=== PATIENT | male | born 1950 | race Caucasian/White ===

== ENCOUNTER 2017-10-14 15:10 | Emergency (ER) | payer OTHER ==
[2017-10-14 15:16] VITALS: RESP 18
[2017-10-14] MEDS ORDERED: ASPIRIN 81 MG PO STA (15:21)
[2017-10-14 15:47] LABS: Basophils % (A) 0 %; Eosinophils # (A) 0.2 k/uL (0-0.7); Eosinophils % (A) 3 %; HCT 44.4 % (39.0-53.0); HGB 14.6 gm/dL (13.0-17.5); Lymphocytes # (A) 2.6 k/uL (1.0-4.8); Lymphocytes % (A) 32 %; MCH 30.7 pg (25.0-35.0); MCHC 32.9 g/dL (31.0-37.0); MCV 93.3 fL (80.0-100.0); Mean Platelet Volume 10.1; Monocytes # (A) 0.5 k/uL (0-1.0); Monocytes % (A) 6 %; Neutrophils # (A) 4.5 k/uL (1.3-7.7); Neutrophils % (A) 57 %; Platelet Count 152 k/uL (150-450); RBC 4.76 m/uL (4.30-5.90); RDW 13.2 % (11.5-15.5)
[2017-10-14 15:55] LABS: ALT 28 U/L (21-72); AST 22 U/L (17-59); Albumin 4.2 g/dL (3.5-5.0); Alkaline Phosphatase 49 U/L (38-126); Anion Gap 11 mmol/L; Blood Urea Nitrogen 21 mg/dL (9-20); Calcium 8.8 mg/dL (8.4-10.2); Carbon Dioxide 22 mmol/L (22-30); Chloride 107 mmol/L (98-107); Glucose 113 mg/dL (74-99); Lipase 206 U/L (23-300); Magnesium 1.8 mg/dL (1.6-2.3); Sodium 140 mmol/L (137-145); Total Bilirubin 0.3 mg/dL (0.2-1.3); Total Protein 6.6 g/dL (6.3-8.2)
--- NOTE | 2017-10-14 16:01 | XR ---
EXAMINATION TYPE: XR chest 2V DATE OF EXAM: 10/14/2017 COMPARISON: 12/19/2012 HISTORY: Chest pain TECHNIQUE: Frontal and lateral views of the chest are obtained. FINDINGS: There is no focal air space opacity, pleural effusion, or pneumothorax seen. The cardiac silhouette size is within normal limits. The osseous structures are intact. Moderate multilevel deg enerative changes of the thoracic spine are noted. IMPRESSION: No acute cardiopulmonary process.
--- NOTE | 2017-10-14 16:04 | ED ---
Chest Pain HPI - General Chief Complaint: Chest Pain Stated Complaint: Heart Check sent by PCP Time Seen by Provider: 10/14/17 15:19 Source: patient Mode of arrival: ambulatory Limitations: no limitations - History of Present Illness Initial Comments: Patient complains of chest pain. Pain is in the left side of the chest. It does not radiate anywhere. He has no shortness of breath, nausea or vomiting or diaphoresis. He has no pain or swelling in the legs. He denies sick contacts. He denies recent travel. He denies long plane or cards. He has taken an aspirin for the chest pain prior to arrival. He has no neck pain or stiffness. He has no headache. - Related Data Home Medications Medication Instructions Recorded Confirmed Aspirin 81 mg PO DAILY 07/09/15 07/09/15 Allergies Allergy/AdvReac Type Severity Reaction Status Date / Time No Known Allergies Allergy Verified 10/14/17 15:16 Review of Systems ROS Statement: Those systems with pertinent positive or pertinent negative responses have been documented in the HPI. ROS Other: All systems not noted in ROS Statement are negative. EKG Findings - EKG Comments: EKG Findings:: Twelve-lead EKG shows ventricular rate 60 bpm, normal WI interval and QRS complexes, no ST elevation or depression, interpreted by me as normal sinus rhythm. Past Medical History Additional Past Medical History / Comment(s): HX POLYPS History of Any Multi-Drug Resistant Organisms: None Reported Past Surgical History: No Surgical Hx Reported Additional Past Surgical History / Comment(s): HX NO MAJOR SURGERIES Past Anesthesia/Blood Transfusion Reactions: No Reported Reaction Past Psychological History: No Psychological Hx Reported Smoking Status: Former smoker Past Alcohol Use History: None Reported Past Drug Use History: None Reported - Past Family History Father Family Medical History: Deep Vein Thrombosis (DVT) General Exam Limitations: no limitations General appearance: alert, in no apparent distress Head exam: Present: atraumatic, normocephalic, normal inspection Eye exam: Present: normal appearance, PERRL, EOMI. Absent: scleral icterus, conjunctival injection, periorbital swelling ENT exam: Present: normal exam, mucous membranes moist Neck exam: Present: normal inspection. Absent: tenderness, meningismus, lymphadenopathy Respiratory exam: Present: normal lung sounds bilaterally. Absent: respiratory distress, wheezes, rales, rhonchi, stridor Cardiovascular Exam: Present: regular rate, normal rhythm, normal heart sounds. Absent: systolic murmur, diastolic murmur, rubs, gallop, clicks GI/Abdominal exam: Present: soft, normal bowel sounds. Absent: distended, tenderness, guarding, rebound, rigid Extremities exam: Present: normal inspection, full ROM, normal capillary refill. Absent: tenderness, pedal edema, joint swelling, calf tenderness Back exam: Present: normal inspection Neurological exam: Present: alert, oriented X3, CN II-XII intact Psychiatric exam: Present: normal affect, normal mood Skin exam: Present: warm, dry, intact, normal color. Absent: rash Course Vital Signs 10/14/17 15:14 Temperature 98.7 F Pulse Rate 70 Respiratory 18 Rate Blood Pressure 168/77 O2 Sat by Pulse 97 Oximetry Chest Pain MDM - Core Measures AMI Core Measures Followed: Yes - MDM Patient complains of chest pain. I will consult cardiology. He will be admitted to the hospital. Disposition Clinical Impression: Chest pain Disposition: ADMITTED IP TO THIS HOSP Condition: Fair Is patient prescribed a controlled substance at d/c from ED?: No Referrals: Jose Mckeon DO [Primary Care Provider] - 1-2 days
[2017-10-14 16:14] LABS: INR 1.1 (<1.2); Partial Thromboplastin Time 23.1 sec (22.0-30.0); Prothrombin Time 10.3 sec (9.0-12.0)
--- NOTE | 2017-10-14 16:27 | ED ---
Medical Decision Making - Lab Data Result diagrams: 10/14/17 15:38 10/14/17 15:38 Lab Results 10/14/17 10/14/17 10/14/17 Range/Units 15:38 15:38 15:38 WBC 8.0 (3.8-10.6) k/uL RBC 4.76 (4.30-5.90) m/uL Hgb 14.6 (13.0-17.5) gm/dL Hct 44.4 (39.0-53.0) % MCV 93.3 (80.0-100.0) fL MCH 30.7 (25.0-35.0) pg MCHC 32.9 (31.0-37.0) g/dL RDW 13.2 (11.5-15.5) % Plt Count 152 (150-450) k/uL Neutrophils % 57 % Lymphocytes % 32 % Monocytes % 6 % Eosinophils % 3 % Basophils % 0 % Neutrophils # 4.5 (1.3-7.7) k/uL Lymphocytes # 2.6 (1.0-4.8) k/uL Monocytes # 0.5 (0-1.0) k/uL Eosinophils # 0.2 (0-0.7) k/uL Basophils # 0.0 (0-0.2) k/uL PT (9.0-12.0) sec INR (<1.2) APTT (22.0-30.0) sec Sodium 140 (137-145) mmol/L Potassium 4.0 (3.5-5.1) mmol/L Chloride 107 (98-107) mmol/L Carbon Dioxide 22 (22-30) mmol/L Anion Gap 11 mmol/L BUN 21 H (9-20) mg/dL Creatinine 0.70 (0.66-1.25) mg/dL Est GFR (CKD-EPI)AfAm >90 (>60 ml/min/1.73 sqM) Est GFR (CKD-EPI)NonAf >90 (>60 ml/min/1.73 sqM) Glucose 113 H (74-99) mg/dL Calcium 8.8 (8.4-10.2) mg/dL Magnesium 1.8 (1.6-2.3) mg/dL Total Bilirubin 0.3 (0.2-1.3) mg/dL AST 22 (17-59) U/L ALT 28 (21-72) U/L Alkaline Phosphatase 49 (38-126) U/L Troponin I (0.000-0.034) ng/mL NT-Pro-B Natriuret Pep 150 pg/mL Total Protein 6.6 (6.3-8.2) g/dL Albumin 4.2 (3.5-5.0) g/dL Lipase 206 (23-300) U/L 10/14/17 10/14/17 Range/Units 15:38 15:38 WBC (3.8-10.6) k/uL RBC (4.30-5.90) m/uL Hgb (13.0-17.5) gm/dL Hct (39.0-53.0) % MCV (80.0-100.0) fL MCH (25.0-35.0) pg MCHC (31.0-37.0) g/dL RDW (11.5-15.5) % Plt Count (150-450) k/uL Neutrophils % % Lymphocytes % % Monocytes % % Eosinophils % % Basophils % % Neutrophils # (1.3-7.7) k/uL Lymphocytes # (1.0-4.8) k/uL Monocytes # (0-1.0) k/uL Eosinophils # (0-0.7) k/uL Basophils # (0-0.2) k/uL PT 10.3 (9.0-12.0) sec INR 1.1 (<1.2) APTT 23.1 (22.0-30.0) sec Sodium (137-145) mmol/L Potassium (3.5-5.1) mmol/L Chloride (98-107) mmol/L Carbon Dioxide (22-30) mmol/L Anion Gap mmol/L BUN (9-20) mg/dL Creatinine (0.66-1.25) mg/dL Est GFR (CKD-EPI)AfAm (>60 ml/min/1.73 sqM) Est GFR (CKD-EPI)NonAf (>60 ml/min/1.73 sqM) Glucose (74-99) mg/dL Calcium (8.4-10.2) mg/dL Magnesium (1.6-2.3) mg/dL Total Bilirubin (0.2-1.3) mg/dL AST (17-59) U/L ALT (21-72) U/L Alkaline Phosphatase (38-126) U/L Troponin I <0.012 (0.000-0.034) ng/mL NT-Pro-B Natriuret Pep pg/mL Total Protein (6.3-8.2) g/dL Albumin (3.5-5.0) g/dL Lipase (23-300) U/L Disposition Clinical Impression: Chest pain Disposition: Left Against Medical Advice Condition: Fair Instructions: Chest Pain (ED) Is patient prescribed a controlled substance at d/c from ED?: No Referrals: Jose Mckeon DO [Primary Care Provider] - 1-2 days Felicia Leahy MD [STAFF PHYSICIAN] - 1-2 days
[2017-10-14 16:44] VITALS: BP 158/85; PULSE 61; TEMP 98.6
[2017-10-15] MEDS ORDERED: ASPIRIN 81 MG PO SCH (09:00)
== END 2017-10-14 16:42 | disposition home or self-care (01) ==
LOC: EC 15:10
DX: R07.9 Chest pain, unspecified (principal); Z79.82 Long term (current) use of aspirin; Z87.891 Personal history of nicotine dependence
CPT/HCPCS: 36415; 71046; 80053; 83690; 83735; 83880; 84484; 85025; 85610; 85730; 93005; 99285

== ENCOUNTER 2018-02-02 15:18 | Emergency (ER) | payer OTHER ==
[2018-02-02] MEDS ORDERED: IBUPROFEN 600 MG TAB PO STA (15:56)
--- NOTE | 2018-02-02 16:50 | ED ---
Eye Problem HPI - General Chief complaint: Eye Problems Stated complaint: eye injury Time Seen by Provider: 02/02/18 15:41 Source: patient Mode of arrival: ambulatory Limitations: no limitations - History of Present Illness Initial comments: 67male who denies PMH with chief complaint of left eye pain s/p injury. Patient states that around 1:15 this afternoon he was trying to push the lawn more up a ramp, when he came back the Yamil handle hit him directly in the left eye. Patient states that it felt as though hit just the eyeball, with minimal contact of the orbits. Patient denies any flashing lights, new onset of floaters or curtain/veil or darkening of peripheral vision. Patient denies any loss of vision or visual changes. Patient denies any pain with EOM, nausea , vomiting, photophobia, foreign body sensation. When the swelling increased about 2 hours after the injury patient presents emergency department for evaluation. Patient denies any allergies or past medical history. Patient denies any recent fever, chills, shortness of breath, chest pain, back pain, abdominal pain, nausea or vomiting, numbness or tingling, dysuria or hematuria, constipation or diarrhea, headaches or visual changes, or any other complaints. - Related Data Home Medications Medication Instructions Recorded Confirmed Cholecalciferol [Vitamin D3] 1,000 unit PO DAILY 02/02/18 02/02/18 Mellisa 500 mg PO DAILY 02/02/18 02/02/18 [place]-3 Fatty Acids/Fish Oil [Fish 1 cap PO TID-W/MEALS 02/02/18 02/02/18 Oil 1,000 mg Softgel] Turmeric Root Extract [Turmeric] 500 mg PO DAILY 02/02/18 02/02/18 Previous Rx's Medication Instructions Recorded Acetaminophen-Codeine 300-30mg 1 tab PO Q6H PRN 3 Days #12 tablet 02/02/18 [Tylenol w/codeine #3] Amoxicillin/Potassium Clav 1 tab PO Q12HR 5 Days #10 tab 02/02/18 [Augmentin 875-125 Tablet] Allergies Allergy/AdvReac Type Severity Reaction Status Date / Time No Known Allergies Allergy Verified 02/02/18 16:09 Review of Systems ROS Statement: Those systems with pertinent positive or pertinent negative responses have been documented in the HPI. ROS Other: All systems not noted in ROS Statement are negative. Constitutional: Denies: fever, chills Eyes: Reports: eye pain. Denies: eye discharge, vision change ENT: Denies: ear pain, throat pain Respiratory: Denies: cough, dyspnea, wheezes, hemoptysis, stridor Cardiovascular: Denies: chest pain, palpitations Endocrine: Denies: fatigue Gastrointestinal: Denies: abdominal pain, nausea, vomiting Genitourinary: Denies: as per HPI, urgency, dysuria, frequency, hematuria, discharge Musculoskeletal: Denies: back pain Skin: Denies: rash, lesions Neurological: Denies: as per HPI, headache, weakness, numbness, paresthesias, confusion Past Medical History Additional Past Medical History / Comment(s): HX POLYPS History of Any Multi-Drug Resistant Organisms: None Reported Past Surgical History: No Surgical Hx Reported Additional Past Surgical History / Comment(s): HX NO MAJOR SURGERIES Past Anesthesia/Blood Transfusion Reactions: No Reported Reaction Past Psychological History: No Psychological Hx Reported Smoking Status: Former smoker Past Alcohol Use History: Occasional Past Drug Use History: None Reported - Past Family History Father Family Medical History: Deep Vein Thrombosis (DVT) General Exam - General Exam Comments Initial Comments: General: The patient is awake and alert, in no distress, and does not appear acutely ill. Eye: Examination of the external eye bilaterally reveals left eye swelling of the upper and lower lids with ecchymosis. No exophalamos or enopthalmos. +3 pupils are equal, round and reactive to light, extra-ocular movements are intact. Pt did admit to mild pain to EOM with upward gaze- there did not appear to be obvious signs of entrapment with upward gaze. No APD or conjugate gaze. No nystagmus. No hypema. There is moderate conjunctival injection of the left eye sparing the limbus, right eye conjunctiva within normal limits. No subconjunctival hemorrhage-including 360 hemorrhage. No signs of icterus. VF intact to confrontation b/l. VA 20/30 OD, OS and OU. Slit-lamp exam with fluorescein staining revealed no areas of uptake, negative Nguyen sign b/l. Retinal exam is limited due to no dilation-no obvious abnormalities. There are no palpable defect or step off to palpation of the orbital bones. No facial sensation abnormalities to light touch. IOP 10 OD, IOP 11 OS. Ears, nose, mouth and throat: There are moist mucous membranes and no oral lesions. Neck: The neck is supple, there is no tenderness or JVD. Cardiovascular: There is a regular rate and rhythm. No murmur, rub or gallop is appreciated. Respiratory: Lungs are clear to auscultation, respirations are non-labored, breath sounds are equal. No wheezes, stridor, rales, or rhonchi. Musculoskeletal: Normal ROM, no tenderness. Strength 5/5. Sensation intact. Radial pulses equal bilaterally 2+. Neurological: A&O x 3. CN II-XII intact, There are no obvious motor or sensory deficits. Coordination appears grossly intact. Speech is normal. Skin: Skin is warm and dry and no rashes or lesions are noted. Psychiatric: Cooperative, appropriate mood & affect, normal judgment. Repeat PE: After 3 hours VA repeated 20/30 OD, OS, OU. Pupils +3 mm PERRL. No APD. Limitations: no limitations Course Vital Signs 02/02/18 02/02/18 15:32 19:20 Temperature 98.8 F 98.2 F Pulse Rate 55 L 49 L Respiratory 18 17 Rate Blood Pressure 150/74 162/70 O2 Sat by Pulse 99 98 Oximetry Medical Decision Making - Medical Decision Making PE as noted above. VA equally b/l. No signs or symptoms of globe rupture, retinal detachment or retrobulbar hematoma. There are no signs or symptoms of corneal abrasion upon physical exam with slit lamp. Pt did admit to pain with upward gaze however pt was able to complete movement no signs of entrapment. Due to pain with EOM CT of orbits obtained revealing orbit floor fracture with no signs of muscle entrapment. Repeat VA performed revealing no changes from original exam. Case discussed with Dr. Colvin who agrees that pt is stable for d/ c with f/u with ophthalmology within 24 hours. Pt was given specific return parameters regarding signs and symptoms of retinal detachment, increasing pain and any visual changes/loss. Pt verbalizes understanding. Pt HR bradycardia concerning for vagal response, however pt denies any symptoms including light headed, nausea vomiting concerning for a severe response-BP stable. Case discussed in detail with Dr. Colvin who reviewed imaging and deemed patient is stable for discharge with close ophthalmology follow-up. Patient is to have a need to make the appointment with ophthalmology themselves. Patient is given prescription for Tylenol 3 for pain management. Opioids are talking form was filled out, the patient was educated on use of opioids. Pt discharged in stable condition. Disposition Clinical Impression: Blunt injury, left eye, Fracture of left orbital floor Disposition: HOME SELF-CARE Condition: Good Instructions: Eye Pain (ED) Additional Instructions: Please use medication as discussed. Please follow-up with ophthalmology in the next 24-48 hours. Please return to emergency room if the symptoms increase or worsen or for any other concerns, as discussed. Prescriptions: Acetaminophen-Codeine 300-30mg [Tylenol w/codeine #3] 1 tab PO Q6H PRN 3 Days # 12 tablet PRN Reason: Pain Amoxicillin/Potassium Clav [Augmentin 875-125 Tablet] 1 tab PO Q12HR 5 Days #10 tab Is patient prescribed a controlled substance at d/c from ED?: No Referrals: [facility],Clinic [Primary Care Provider] - 1-2 days Galdino Adkins MD [STAFF PHYSICIAN] - 1-2 days Time of Disposition: 16:52
--- NOTE | 2018-02-02 18:55 | CT ---
EXAMINATION TYPE: CT orbits wo con DATE OF EXAM: 02/02/2018 COMPARISON: None HISTORY: Hit in left eye with dispensing and measuring optician handle. CT DLP: 378 mGycm Automated exposure control for dose reduction was used. FINDINGS: There is marked left-sided preorbital soft tissue swelling and subcutaneous emphysema. There is a left orbital floor 6 mm caudally-displaced fracture, with the fracture line being medial t o the inferior rectus. The inferior rectus does not appear to be entrapped. Tiny gas bubbles are note d within the left orbit as a result of this left ORBIT communication with the upper left maxillary si nus. Paranasal sinuses are otherwise unremarkable, as are the middle ear cavities and mastoid sinus air ce lls. Remainder the visualized facial skeleton is intact. No other fractures. No other soft tissue findings. IMPRESSION: LEFT ORBITAL FLOOR FRACTURE.
[2018-02-02 19:21] VITALS: BP 162/70; PULSE 49; RESP 17; TEMP 98.2
== END 2018-02-02 19:39 | disposition home or self-care (01) ==
LOC: EC 15:18
DX: S02.32XA Fracture of orbital floor, left side, initial encounter for closed fracture (principal); S05.92XA Unspecified injury of left eye and orbit, initial encounter; R00.1 Bradycardia, unspecified; Z86.010 Personal history of colon polyps; Z87.891 Personal history of nicotine dependence; Z79.899 Other long term (current) drug therapy; W27.1XXA Contact with garden tool, initial encounter; Y93.89 Activity, other specified
CPT/HCPCS: 70480; 99283

== ENCOUNTER → 2019-01-04 | Outpatient (CLI) | payer OTHER ==
--- NOTE | 2019-01-06 01:08 | MR ---
EXAMINATION TYPE: MR femur/thigh RT wo/w con DATE OF EXAM: 01/04/2019 COMPARISON: None HISTORY: Mass/lump to inner right thigh CONTRAST: Standard multiplanar, multisequence MRI departmental protocol utilizing 8.5 mL intravenous Gadavist g adolinium contrast. FINDINGS: There is very slight increased signal on the T2 images involving medial adductor muscles of the upper right thigh. This area also shows slight enhancement with contrast. There is normal flow v oid seen in the femoral artery and vein. I see no focal bone destruction. Subcutaneous tissues appear normal. I see no discrete soft tissue mass. There is no pathologic fluid collection. IMPRESSION: No discrete mass seen. Mild adductor muscle enhancement could relate to myositis.
== END ==
LOC: RADMRIMAIN 07:11
PROVIDERS: ATTEND Nurse Practitioner Acute Care
DX: R22.41 Localized swelling, mass and lump, right lower limb (principal)
CPT/HCPCS: 73720; A9585

== ENCOUNTER 2019-06-01 08:59 | Day surgery (SDC) | payer OTHER ==
[2019-05-31 08:43] VITALS: BMI 31.9
[~2019-06-01 08:59] MED LIST: LACTATED RINGERS 1,000 ML IV SCH; LIDOCAINE 1% 20 ML VIAL (10MG/ML) FOR IV START INTRADERMA PRN
[2019-06-01 10:03] VITALS: RESP 16; TEMP 98.2
[2019-06-01] MEDS ORDERED: PROPOFOL 10 MG/ML 20 ML VIAL IV ONE (10:33)
[2019-06-01] MEDS ORDERED: LIDOCAINE 1% INJ 10MG/ML (20 ML MDV) ONE (10:33)
--- NOTE | 2019-06-01 10:49 | P.PCN ---
Date of Procedure: 06/01/19 Procedure(s) Performed: BRIEF HISTORY: Patient is a 69-year-old pleasant male scheduled for an elective colonoscopy as a part of a history of colon polyps. Her last coloscopy was 5 years ago. PROCEDURE PERFORMED: Colonoscopy with snare polypectomy. PREOPERATIVE DIAGNOSIS: History of colon polyps. IV sedation per Anesthesia. PROCEDURE: After informed consent was obtained, the patient, was brought into the endoscopy unit. IV sedation was administered by Anesthesia under continuous monitoring. Digital rectal examination was normal. Initially the Olympus CF-160 flexible video colonoscope was then inserted in the rectum, gradually advanced into the cecum without any difficulty. Careful examination was performed as the scope was gradually being withdrawn. Ileocecal valve and the appendiceal orifice were visualized and appeared normal. Prep was excellent. Mucosa of the cecum, ascending colon appeared normal. In the transverse colon there were 2 polyps measuring 5 mm in size both of which were removed by snare polypectomy. Rest of the transverse colon, descending colon, sigmoid colon, and rectum appeared normal. scattered left sided diverticulosis seen. Retroflexion was performed in the rectum and no lesions were seen. The patient tolerated the procedure well. IMPRESSION: 5 mm 2 transverse colon polyp status post polypectomy Scattered sigmoid diverticulosis RECOMMENDATIONS: Findings of this examination were discussed with the patient .as well as his family. He was advised to follow with the biopsy result. If the biopsy shows an adenoma he can have a repeat colonoscopy in 5 years
[2019-06-01] MEDS ORDERED: LACTATED RINGERS 1,000 ML IV ONE (10:51)
[2019-06-01 12:28] VITALS: BP 151/74; PULSE 59
== END 2019-06-01 11:26 | disposition home or self-care (01) ==
LOC: ORWHC2ENDO 08:59
PROVIDERS: ATTEND Internal Medicine Gastroenterology
DX: Z12.11 Encounter for screening for malignant neoplasm of colon (principal); D12.3 Benign neoplasm of transverse colon; K57.30 Diverticulosis of large intestine without perforation or abscess without bleeding; Z86.010 Personal history of colon polyps; Z87.891 Personal history of nicotine dependence; Z87.2 Personal history of diseases of the skin and subcutaneous tissue
CPT/HCPCS: 88305; 99214; 71046; 45385; J2001; J2704

== ENCOUNTER → 2022-08-27 | Outpatient (CLI) | payer OTHER ==
--- NOTE | 2022-08-27 12:47 | CTL ---
EXAMINATION TYPE: CT Low Dose Lung DATE OF EXAM ORDERED: 08/27/2022 HISTORY: Long-term tobacco use. Lung cancer screening CT DLP: 118.[address] CTDI: 3.4 mGy Automated exposure control for dose reduction was used. SCREENING VISIT: Baseline COMPARISON: None TECHNIQUE: Low dose computed tomography scan was performed through the chest at 1 mm thick sections a nd reconstructed images in multiple planes at 1 mm and [address] DIAGNOSTIC QUALITY: Satisfactory FINDINGS: LUNG NODULES: None. LUNGS: COPD: Severity: Mild Fibrosis: Severity: Mild left basilar linear atelectasis and/or scarring Lymph nodes: No greater than 1 cm Other findings: None. RIGHT PLEURAL SPACE: Effusion: None Calcification: None Thickening: None Pneumothorax: None LEFT PLEURAL SPACE: Effusion: None Calcification: None Thickening: None Pneumothorax: None HEART: Heart Size: Normal Coronary Calcification: Moderate to severe three-vessel Pericardial Effusion: None OTHER FINDINGS: Upper abdomen: Tiny dependent gallstones axial image 57 series 4. -Tiny nodule inferior left adrenal gland on last axial images #9. Bony thorax: Bridging osteophytes in the mid to lower thoracic spine. A few scattered osseous hemangi omas in the mid to lower thoracic spine Supraclavicular region: None Other: None IMPRESSION: Mild emphysematous change without significant pulmonary nodules. CT LUNG RAD AND CT CHEST RECOMMENDATION: Lung-Rad 1 Negative: Continue annual screening with LDCT in 12 months. S Modifier (other clinically significant findings): S Fairly severe coronary artery calcifications should be correlated with additional cardiac risk factor s.
== END | disposition home or self-care (01) ==
LOC: RADCTMAIN 10:50
DX: Z12.2 Encounter for screening for malignant neoplasm of respiratory organs (principal); J43.9 Emphysema, unspecified; F17.210 Nicotine dependence, cigarettes, uncomplicated
CPT/HCPCS: 71271

== ENCOUNTER → 2024-04-06 | Outpatient (CLI) | payer OTHER ==
[2024-04-06 14:27] LABS: African American GFR (CKD) >90 (>60 ml/min/1.73 sqM); Blood Urea Nitrogen 19 mg/dL (9-20); Non-African American GFR(CKD) 86 (>60 ml/min/1.73 sqM)
--- NOTE | 2024-04-06 17:16 | CT ---
EXAMINATION TYPE: CT angio head DATE OF EXAM: 04/06/2024 3:09 PM COMPARISON: None. CLINICAL INDICATION: Male, 74 years old with history of R41.3 OTHER AMNESIA, memory issues TECHNIQUE: CTA scan is performed with axial images are obtained, coronal and sagittal reformatted fernie ges are reviewed. 3-D reconstructed images are created on an independent workstation and reviewed. S ource images are reviewed. NASCET criteria was used in interpretation of this exam? Contrast used:80ml mL of Isovue 370 without and with IV Contrast, (none if empty) Oral contrast used: (none if empty) CT DLP: 1259.60 mGycm, Automated exposure control for dose reduction was used. FINDINGS: Cervical of [place]: Vertebral basilar arteries follow a normal course. Three-D reconstructed images h ave a focal stenosis of the distalmost left vertebral artery as it joins into the basilar artery. Thi s finding is present on source images and appears to be real. Posterior cerebral vasculature is unrem arkable. Internal carotid arteries bifurcate normally into A1 and M1 segments. A2 segments are normal . The anterior communicating artery is patent. The right posterior communicating artery is absent. The left posterior communicating artery is absent. IMPRESSION: 1. 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 Obstruction is not i dentified. 2. Remaining portions of the point [place] of [place] appear within normal limits [facility], Workstation: [facility], 04/06/2024 5:14 PM
--- NOTE | 2024-04-06 17:19 | CT ---
EXAMINATION TYPE: CT brain wo con DATE OF EXAM: 04/06/2024 3:09 PM COMPARISON: None. CLINICAL INDICATION: Male, 74 years old with history of R41.3 OTHER AMNESIA, memory issues TECHNIQUE: CT of the brain is performed utilizing 3 mm thick sections through the posterior fossa and 3 mm thick sections through the remaining calvarium. Study is performed within 24 hours of arrival to the hospital. Contrast used: mL of , (none if empty) CT DLP: 1259.60 mGycm, Automated exposure control for dose reduction was used. FINDINGS: No abnormal hyperdensity is present to suggest an acute intracranial hemorrhage. No mass lesion is evident. No acute infarcts are evident. Minimal periventricular white matter hypodensity is present, likely on the basis of chronic white matter ischemic changes Ventricles and sulci are minimal for the patient age. Paranasal sinuses and mastoid air cells within the [id number] are clear. IMPRESSION: 1. Minimal periventricular white matter ischemic type changes likely chronic with mild age-related atrophy. 2. No acute intracranial process. Follow up MRI can be performed as clinically indicated. [facility], Workstation: [facility], 04/06/2024 5:16 PM
== END | disposition home or self-care (01) ==
LOC: RADCTMAIN 13:22
PROVIDERS: ATTEND Psychiatry & Neurology Neurology
DX: I67.82 Cerebral ischemia (principal); Z01.818 Encounter for other preprocedural examination; R41.3 Other amnesia
CPT/HCPCS: 82565; 84520; 70496; 70450; 36415; Q9967